=== PATIENT | female | born 1965 | race African-American/Black ===

== ENCOUNTER 2021-01-11 15:02 | Emergency (ER) | payer OTHER ==
[~2021-01-11] VITALS: Ht 152.4 cm; Wt 108.9 kg
[2021-01-11 15:37] LABS: ABSOLUTE NEUTROPHILS 5.7 thou/uL (1.4-8.2); BASOPHILS 1.3 % (0.0-2.0); EOSINOPHILS 0.3 % (0.0-3.0); HEMOGLOBIN 13.6 gm/dL (12.0-15.0); LYMPHOCYTES 20.2 % (24.0-44.0); MCH 32.4 pg (26.0-34.0); MCHC 33.2 g/dL (28.0-37.0); MCV 97.8 fL (80.0-100.0); MONOCYTES 8.6 % (1.0-8.0); PLATELET COUNT 287 thou/uL (150-400); POLYS 69.6 % (36.0-66.0); RBC 4.19 mil/uL (4.20-5.00); WBC 8.2 thou/uL (4.0-11.0)
[2021-01-11 15:53] LABS: TROPONIN-I <0.06 ng/mL (<0.06)
[2021-01-11 16:04] LABS: CALCIUM 9.1 mg/dL (8.5-10.1); CREATININE 0.9 mg/dL (0.6-1.0); POTASSIUM 3.6 mmol/L (3.5-5.1)
[2021-01-11 16:09] LABS: TOTAL BILIRUBIN 0.7 mg/dL (0.2-1.0); TOTAL PROTEIN 8.5 g/dL (6.4-8.2)
--- NOTE | 2021-01-11 16:47 | EKG ---
[address] [address] ELECTROCARDIOGRAM REPORT Name: EDWIN GUZMAN Room [facility]: 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
[2021-01-11] MEDS ORDERED: LISINOPRIL10 MG PO (17:43)
[2021-01-11 18:16] VITALS: BP 189/87
== END 2021-01-11 18:17 | disposition home or self-care (01) ==
LOC: ER 15:02
PROVIDERS: Emergency Medicine
DX: I10 Essential (primary) hypertension (principal); R20.2 Paresthesia of skin; M79.89 Other specified soft tissue disorders; R20.0 Anesthesia of skin